=== PATIENT | female | born 1970 | race Two or more races ===

== ENCOUNTER → 2020-07-25 | Outpatient (CLI) | payer OTHER | END | disposition home or self-care (01) | LOC: CVU 14:37 | PROVIDERS: ATTEND Internal Medicine Cardiovascular Disease | DX: I08.8 Other rheumatic multiple valve diseases (principal); R55 Syncope and collapse | CPT/HCPCS: 93306 ==

== ENCOUNTER 2020-09-26 12:33 | Emergency (ER) | payer OTHER ==
[~2020-09-26] VITALS: Ht 154.9 cm; Wt 80.7 kg
--- NOTE | 2020-09-26 13:04 | NUR ---
P[employer]: PT TO ROOM FROM LOBBY
--- NOTE | 2020-09-26 13:50 | NUR ---
PT STATES SHE PASSED OUT AT WORK TODAY AND TUESDAY. STATES WHEN THINGS GET TOO BUSY SHE STARTS FEELING NAUSEATED AND THEN PASSES OUT. 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
[2020-09-26 14:13] LABS: BASOPHILS % (AUTO) 1 % (0-1); EOSINOPHILS % (AUTO) 1 % (1-7); LYMPHOCYTES % (AUTO) 32 % (22-44); MEAN CORPUSCULAR HEMOGLOBIN 29.6 pg (27.0-34.8); MEAN CORPUSCULAR HGB CONC 34.5 g/dL (32.4-35.8); MEAN PLATELET VOLUME 7.7 fL (7.4-10.4); MONOCYTES % (AUTO) 8 % (2-9); NEUTROPHILS % (AUTO) 59 % (42-75); PLATELET COUNT 305 x10^3/uL (130-400); RED BLOOD COUNT 4.78 x10^6/uL (3.82-5.3)
[2020-09-26 14:25] LABS: ALBUMIN 3.8 g/dL (3.4-5.0); ANION GAP 4 mmol/L (5-15); CHLORIDE 109 mmol/L (98-107); CREATININE 0.48 mg/dL (0.55-1.02)
[2020-09-26 14:26] LABS: MD NO
[2020-09-26 14:29] LABS: TROPONIN I < 0.015 ng/mL (0.000-0.045)
[2020-09-26 15:11] VITALS: BP 124/77
--- NOTE | 2020-09-26 15:11 | NUR ---
MD AT BEDSIDE RE-EVALUATING PT AND DISCUSSING TEST RESULTS. PT STATES SHE IS FEELING BETTER. DISCHARGE PLAN BEING DISCUSSED.
== END 2020-09-26 15:56 | disposition home or self-care (01) ==
LOC: ED 13:23
DX: R55 Syncope and collapse (principal); I10 Essential (primary) hypertension; R94.31 Abnormal electrocardiogram [ECG] [EKG]
CPT/HCPCS: 36415; 71045; 80048; 82040; 84484; 85025; 93005; 99285